=== PATIENT | male | born 1995 | race Caucasian/White ===

== ENCOUNTER 2021-12-15 13:07 | Emergency (ER) | payer SELFPAY ==
[2021-12-15 13:40] LABS: HEMOGLOBIN 17.5 gm/dl (14.0-17.5); RED BLOOD COUNT 5.45 M/UL (4.20-5.50); WHITE BLOOD COUNT 7.1 K/UL (4.5-11.0)
[2021-12-15 14:05] LABS: BUN/CREATININE RATIO 10 (0-10)
[2021-12-15] MEDS ORDERED: ANAPROX DS550 MG PO (17:54)
[2021-12-15] MEDS ORDERED: CYCLOBENZAPRINE10 MG PO (17:54)
== END 2021-12-15 18:15 | disposition home or self-care (01) ==
LOC: ER1 13:07
PROVIDERS: Emergency Medicine
DX: R51.9 Headache, unspecified (principal); I10 Essential (primary) hypertension; F17.200 Nicotine dependence, unspecified, uncomplicated; Z20.822 Contact with and (suspected) exposure to COVID-19
CPT/HCPCS: 0240U; 70450; 71045; 80053; 82550; 82553; 84484; 85025; 93005; 96372; 99284; J1885